=== PATIENT | female | born 1985 | race Caucasian/White ===

== ENCOUNTER 2025-05-14 11:19 | Emergency (ER) | payer BC, SELFPAY ==
--- OUTSIDE RECORDS SUMMARY | 2024-10-27 05:00 | XMS_ITS ---
Author Organization [facility] Advise Only Address [address] [place] [address] Care Team Providers Care Python Django Developer Name Role Phone Daniel Shaikh Primary Care Provider [phone] Santa Preston Unavailable [phone] REASON FOR VISIT f/u labs (IH) Encounters Encounter Location Date Provider Diagnosis [facility] [address] [place] [address] 10/27/2024 Santa Preston Plan Of Treatment No Information Progress Notes * LINETTE EdenDOB:1985 ( 39 yo F)Acc No.[id number]:10/27/2024 Progress Notes Patient: Estefany FARIAS Provider: Maria M Preston :1985 A ge:38 Y S ex:Female Date:10/27/2024 Address:[address] [place] [address], [facility] Pcp:Daniel Shaikh Subjective: * Chief Complaints: * 1 . f/u labs (IH). * Medical History: Objective: * Vitals: Assessment: Plan: * Treatment: * Images: * Electronic signature of Kyra Preston on 05/15/2025 at 06:14 AM EDT Sign off status: Pending * Provider: Maria M Preston Date: 10/27/2024 Generated for Alem russell/Terri/eTransmitting on: 0 05/15/2025 06:14 AM EDT
--- OUTSIDE RECORDS SUMMARY | 2024-11-28 02:19 | XMS_ITS ---
Author Organization [facility] Address [address] [place] [address] Care Team Providers Care Electroformer Name Role Phone Daniel Shaikh Primary Care Provider Saw Brown [phone] Reason For Referral Reason Cervical Carcinoma OON authorization to [facility] (Dr. 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) Referral Organization [facility] Referring Provider First Name Saw Referring Provider Last Name Kevin Referring Provider Speciality Family Med icine Referred Organization [facility] ter - Referrals Referred Address [facility] Referred Provider Specialty Gynecologic Oncology Referral Priority Urgent REASON FOR VISIT Referral Encounters Encounter Location Date Provider Diagnosis [facility] [address] [place] [address] 11/28/2024 Saw Brown Squamous cell carcinoma of cervix C53.9 Assessments Encounter Date Diagnosis (ICD Code) Assessment Notes Treatment Notes Treatment Clinical Notes Section Notes 11/28/2024 Squamous cell carcinoma of cervix (ICD-10 - C53.9) Plan Of Treatment Referrals Referral Date Details 11/28/2024 11/28/2024, Cervical Carcinoma OON authorization to [facility] (Dr. Antonio Castellanos) (Created [facility] Auth 12/03/2023 - [place]Z), [place] [phone] Progress Notes * Jesi PÉREZ:1985 ( 38 yo F)Acc No.[id number]:11/28/2024 Patient: Estefany FARIAS :1985 A ge:38 Y S ex:Female Address:[address] [place] [address], [address] Subjective: * Chief Complaints: * R eferral * Medical History: * Surgical History: * Hospitalization/Major Diagno stic Procedure: * Medications: Objective: * Vitals: * Physical Examination: Assessment: * Assessment: 1. S quamous cell carcinoma of cervix - C53.9 (Primary) Plan: * Treatment: 2. O thers Referral To:Gynecologic Oncology Reason:Cervical Carcinoma OON authorization to [facility] (Dr. Antonio Castellanos) (Created [facility] Auth 12/03/2023 - [place]) * Procedure Codes: * true * Date: Generated for Jacquelyni yvonne/Terri/eTransmitting on: 0 05/15/2025 06:14 AM EDT Consultation Request Notes Referral Date Referring Provider Referred Provider Not es 11/28/2024 Saw Brown , Cervical Carcinoma OON authorization to [facility] (Dr. Antonio Castellanos) (Created [facility] Auth 12/03/2023 - [place])
--- OUTSIDE RECORDS SUMMARY | 2024-12-12 05:53 | XMS_ITS ---
Author Organization DEL [facility] Address [address] [place] [address] Care Team Providers Care Hourly Shift Manager Name Role Phone Daniel Shaikh Primary Care Provider [phone] REASON FOR VISIT annual 2024 Encounters Encounter Location Date Provider Diagnosis [facility] [address] [place] [address] 12/12/2024 Daniel Shaikh Plan Of Treatment No Information Progress Notes * Omega PÉREZOB:1985 ( 39 yo F)Acc No.[id number]:12/12/2024 Patient: Estefany FARIAS :1985 A ge:38 Y S ex:Female Address:[address] [place] [address], [place], [address] * true * Date: Generated for Alem russell/Terri/eTransmitting on: 0 05/15/2025 06:14 AM EDT
[2025-05-14 11:28] VITALS: BP 162/115; PULSE 81; RESP 16; TEMP 36.8; O2SAT 99; BMI 39.9
[2025-05-14 12:04] LABS: Glucose Urine UA Negative (Normal); Nitrate Urine Negative (Negative); Specific Gravity, Urine 1.011 (1.005-1.030)
[2025-05-14 12:09] LABS: Add Urine Microscopic? YES
--- NOTE | 2025-05-14 12:10 | US_ITS ---
WS: [id number] US pelvic complete* [id number] HISTORY: pelvic pain COMPARISON: None available. Uterus: 7.7 cm x 4.7 cm x 3.6 cm. Normal size anteverted uterus. No fibroid or mass. Endometrium: 0.8 cm. Limited but normal as visualized. Difficult evaluation of the pelvic structures due to body habitus. Neither ovary is identified. No adnexal masses. No free fluid in the cul-de-sac. US/US pelvic complete* [id number] IMPRESSION: 1. Very difficult and limited pelvic ultrasound evaluation. 2. Neither ovary identified. 3. Limited evaluation of the uterus and endometrium.
--- NOTE | 2025-05-14 12:12 | ED_ITS ---
HPI - Abdominal Pain 2 General: Chief Complaint: Abdominal Pain Stated Complaint: side/abd pain Time Seen by Provider: 05/14/25 11:48 History of Present Illness: 39-year-old female with history of appen dectomy, who presents to the ED with progressively worsening left lower quadrant pain radiating to left lower back over the past 2 days. States she has taken 800 milligrams of ibuprofen every 46 hours for her pain, which somewhat helps. Denies fevers, chills, nausea, vomiting, diarrhea, dysuria, difficulty urinating, or vaginal discharge. She states she is not on control but has not been sexually active in the last 8 months. No other complaints at this time. Associated Symptoms: Denies chills, diarrhea, dysuria, fever(s), nausea and vomiting Related Data Previous Rx's ?Medication ?Instructions ?Recorded diclofenac sodium 75 mg 75 mg PO Q12H PRN pain #20 t abs 05/14/25 tablet,delayed release Allergies Allergy/AdvReac Type Severity Reaction Status Date / Time No Known Allergies Allergy Verified 05/14/25 11:31 Review of Systems 2 Const: Denies: fever(s) or chills Card: Denies: chest pain Resp: Denies: dyspnea GI: Reports: abdominal pain; Denies: nausea, vomiting or diarrhea : Denies: difficulty voiding or dysuria Physical Exam 2 Const: COMMON NORMALS: no acute distress and patient oriented x3 HENMT: COMMON NORMALS: normocephalic HEAD & SCALP: normocephalic Resp: COMMON NORMALS: normal respiratory effort Cardio: COMMON NORMALS: regular rate and regular rhythm RATE: regular rate RHYTHM: regular rhythm GI: COMMON NORMALS: Normal to inspection, nondistended, normoactive bowel sounds present PALPATION: Yes Tenderness to palpation present (GI) Details: LLQ Neuro: COMMON NORMALS: patient oriented x3 Course 2 Vital Signs: Vital signs: Vital Signs Temperature 98.2 F 05/14/25 11:28 Pulse Rate 60 05/14/25 16:03 Respiratory Rate 18 05/14/25 16:03 Blood Pressure 163/98 05/14/25 16:03 Pulse Oximetry 98 05/14/25 16:03 Oxygen Delivery Me thod Room Air 05/14/25 11:28 MDM - Abdominal Pain Medical Decision Making Symptoms have improved. Ultrasound limited evaluation ovaries not identified. Patient is feeling somewhat better no elevation in white count lipase liver functions normal . Patient is feeling somewhat better will discharge home with diclofenac to use. Follow-up with [facility] or primary care return to [facility] for problems Medical Records I reviewed the patient's medical records. Lab Data I reviewed the patient's lab results. 05/14/25 12:29 05/14/25 12:29 Labs/Radiology: Radiology Impressions Pelvis Ultrasound 05/14/25 12:10 IMPRESSION: 1. Very difficult and limited pelvic ultrasound evaluation. 2. Neither ovary identified. 3. Limited evaluation of the uterus and endometrium. Laboratory Results WBC 10.54 10^3/uL (3.29-11.43) 05/14/25 12: RBC 4.91 10^6/uL (3.85-5.65) 05/14/25 12:29 Hgb 13.50 g/dL (11.27-16.99) 05/14/25 12:29 Hct 41.5 % (36-47) 05/14/25 12:29 MCV 84.5 fl (85-98) L 05/14/25 12:29 MCH 27.5 pg (27-33) 05/14/25 12:29 MCHC 32.5 g/dL (30-55) 05/14/25 12:29 RDW 14.7 % (12.1-15.1) 05/14/25 12:29 Plt Count 242 10^3/cmm (157-399) 05/14/25 12:29 MPV 8.4 fL (7.4-10.4) 05/14/25 12:29 Neut % (Auto) 69.7 % 05/14/25 12:29 Lymph % (Auto) 19.2 % 05/14/25 12:29 Wharton % (Auto) 5.2 % 05/14/25 12: Eos % (Auto) 4.9 % 05/14/25 12: Baso % (Auto) 0.6 % 05/14/25 12:29 Neut # (Auto) 7.35 10^3/uL (1.8-7.7) 05/14/25 12:29 Lymph # (Auto) 2.0 10^3/uL (0.8-4.8) 05/14/25 12:29 Wharton # (Auto) 0.6 10^3/uL (0.2-0.9) 05/14/25 12:29 Eos # (Auto) 0.5 10^3/uL (0.0-0.8) 05/14/25 12: Baso # (Auto) 0.1 10^3/uL (0.0-0.1) 05/14/25 12:29 Nucleated RBC % (auto) 0 % 05/14/25 12: Nucleated RBCs # 0.0 /100WBC 05/14/25 12:29 Sodium 137 mmol/L (136-145) 05/14/25 12:29 Potassium 4.0 mmol/L (3.5-5.1) 05/14/25 12: Chloride 102 mmol/L (98-107) 05/14/25 12: Carbon Dioxide 23 mmol/L (22-29) 05/14/25 12: Anion Gap 16.0 (5-19) 05/14/25 12: BUN 8 mg/dL (6-20) 05/14/25 12:29 Creatinine 0.6 mg/dL (0.5-0.9) 05/14/25 12:29 GFR Calculation 111.9 mL/min (90-130) 05/14/25 12: Glucose 99 mg/dL (65-115) 05/14/25 12: Calculated Osmolality 282 mOsm/kg (285-295) L 05/14/25 12: Calcium 9.2 mg/dL (8.5-10.5) 05/14/25 12: Total Bilirubin 0.4 mg/dL (0.15-1.2) 05/14/25 12:29 AST 9 U/L (0-32) 05/14/25 12:29 ALT 11 U/L (0-33) 05/14/25 12:29 Alkaline Phosphatase 76 U/L (35-105) 05/14/25 12:29 Total Protein 7.5 g/dL (6.6-8.7) 05/14/25 12:29 Albumin 3.8 g/dL (3.5-5.2) 05/14/25 12: Globulin 3.7 g/dL (1.3-4.6) 05/14/25 12: Lipase 32 U/L (13-60) 05/14/25 12:29 Urine Color Yellow (Yellow) 05/14/25 11:53 Urine Appearance Clear (CLEAR) 05/14/25 11:53 Urine pH 8.5 (5-7) A 05/14/25 11:53 Ur Specific Gower 1.011 (1.005-1.030) 05/14/25 11:53 Urine Protein Negative (Negative) 05/14/25 11:53 Urine Glucose (UA) Negative (Normal) 05/14/25 11:53 Urine Ketones Negative (Negative) 05/14/25 11:53 Urine Blood Negative (Negative) 05/14/25 11:53 Urine Nitrate Negative (Negative) 05/14/25 11:53 Urine Bilirubin Negative (Negative) 05/14/25 11:53 Urine Urobilinogen 0.2 mg/dL (Negative) 05/14/25 11:53 Ur Leukocyte Esterase Negative (Negative) 05/14/25 11:53 Urine RBC 0-2 /hpf (0-2) 05/14/25 11:53 Urine WBC 0-5 /hpf (0-5) 05/14/25 11:53 Ur Squamous Epith Cells 0-5 /hpf (0-5) 05/14/25 11:53 Amorphous Sediment Not Reportable 05/14/25 11:53 Urine Bacteria None seen /hpf (NONE) 05/14/25 11:53 Hyaline Casts 0-4 /lpf H 05/14/25 11:53 All radiology interpretation(s) finalized by discharge Discharge Plan Discharge Patient Disposition: Home Clinical Impression: Abdominal pain Condition: Stable Prescriptions: New diclofenac sodium 75 mg tablet,delayed release (DR/EC) 75 mg PO Q12H PRN (Reason: pain) Qty: 20 0RF Discharge Orders: Discharge ED (Routine); Ordered 05/14/25 Ordered By: Elliott Martinez Discharge Diet: Usual diet Discharge Activity: Resume usual activity Patient Instructions: Abdominal Pain (ED), Opioid Safety, Pain Management, Patient Portal & [place] Instructions Activity Restrictions/Additional Instructions: Thank you for choosing [facility] for your healthcare needs today. It is very important that you follow up as instructed or that you return to the Emergency Department should you have concerns or if your condition changes or worsens in any way. You are seen in the emergency room with complaint of left lower quadrant abdominal pain. Your white count was normal urine was normal electrolytes kidney functions and liver functions were all normal as well. There is no sign of bladder infection kidney stone or other infections in the abdomen. Ultrasound of the pelvis did not show any fluid or cyst. Recommend using diclofenac as needed if symptoms worsen or change follow-up with your primary care provider Print Language: Norwegian Coding Level of Care Code ED Food Service Clerk for Jackelin Ervin
[2025-05-14 12:14] VITALS: BP 152/104; O2SAT 97
[2025-05-14 12:35] LABS: Hematocrit 41.5 % (36-47); Hemoglobin 13.50 g/dL (11.27-16.99); Mean Corpuscular HGB Conc 32.5 g/dL (30-55); Mean Corpuscular Hemoglobin 27.5 pg (27-33); Mean Corpuscular Volume 84.5 fl (85-98); Nucleated Red Blood Cells % 0 %; Platelet Count 242 10^3/cmm (157-399); Red Blood Count 4.91 10^6/uL (3.85-5.65); White Blood Count 10.54 10^3/uL (3.29-11.43)
[2025-05-14 12:54] LABS: Alanine Aminotransferase 11 U/L (0-33); Albumin Level 3.8 g/dL (3.5-5.2); Alkaline Phosphatase 76 U/L (35-105); Anion Gap 16.0 (5-19); Aspartate Amino Transferase 9 U/L (0-32); Blood Urea Nitrogen 8 mg/dL (6-20); Calcium 9.2 mg/dL (8.5-10.5); Carbon Dioxide 23 mmol/L (22-29); Chloride 102 mmol/L (98-107); Creatinine Clr Calc Pharmacy 156.0295; Globulin 3.7 g/dL (1.3-4.6); Glucose 99 mg/dL (65-115); Lipase 32 U/L (13-60); Osmolality Calculated 282 mOsm/kg (285-295); Potassium 4.0 mmol/L (3.5-5.1); Sodium 137 mmol/L (136-145); Total Protein 7.5 g/dL (6.6-8.7)
[2025-05-14 15:19] VITALS: BP 135/86
[2025-05-14 16:03] VITALS: BP 163/98; PULSE 60; RESP 18; O2SAT 98
--- OUTSIDE RECORDS SUMMARY | 2025-05-15 05:14 | XMS_ITS | Clinical Summary ---
Author Organization [facility] Address [address] [place] [address] Care Team Providers Care Bar Attendant Name Role Phone Patient, None Per Primary Care Provider Unavaila ble Allergies No known active allergies Medications No known medications Social History Tobacco Use Types Packs/Day Years Used Date Smoking Tobacco: Every Day Cigarettes Smokeless Tobacco: Never Tobacco Cessation:Ready to Q uit: Not Asked; Counseling Given: Not Answered Comments Unknown Sex and Gender Information Value Date Recorded Sex Assigned at Not on file Legal Sex Female 3:07 PM EDT Gender Identity Not on file Sexual Orientation Not on file Last Filed Vital Signs Vital Sign Reading Time Taken Comments Blood Pressure 120/84 05/03/2023 10:03 AM EDT Pulse 80 05/03/2023 10:03 AM EDT Temperature - - Respiratory Rate 16 05/03/2023 10:03 AM EDT Oxygen Saturation 98% 05/03/2023 10:03 AM EDT Inhaled Oxygen Concentration - - Weight 113.4 kg (250 lb) 05/03/2023 10:03 AM EDT Height 165.1 cm (5' 5 ) 05/03/2023 10:03 AM EDT Body Mass Index 41.6 05/03/2023 10:03 AM EDT Plan of Treatment Not on file Insurance [facility] Care Teams Bar Attendant Relationship Specialty Start Date End Date Patient, None Per PCP - General 01/16/22
--- OUTSIDE RECORDS SUMMARY | 2025-05-15 05:14 | XMS_ITS | Clinical Summary ---
Author Organization [facility] Address [address] [place] [address] Care Team Providers Care Registry Rn Name Role Phone Unavailable Primary Care Provider Unavailabl e Social History Tobacco Use Types Packs/Day Years Used Date Smoking Tobacco: Never Assessed Comments Unknown Sex and Gender Information Value Date Recorded Sex Assigned at Not on file Legal Sex Female 11:56 PM EDT Gender Identity Not on file Sexual Orientation Not on file Plan of Treatment Health Maintenance Due Date Last Done Comments Hepatitis C Screening 1985 Annual Physical 06/29/1989 Depression Screening 1998 Varicella Vaccines (1 of 2 - 13+ 2-dose series) 12/28/1999 Pap Smear 12/28/2007 HPV Vaccines (1 - 3-dose SCD M series) 2013 Cervical Cancer Screening 2016 HPV/Cotest 2016 Influenza Vaccine (#1) 2025 DTaP/Tdap/Td Vaccines (4 - T d or Tdap) 05/21/2034 05/21/2024, 01/12/2022, 12/02/1998 Zoster Vaccines (1 of 2) 2036 Respiratory Syncytial Virus (RSV) 60 years and older and/or patients (1 - 1-dose 75+ series) 2061 MMR Vaccines Completed 04/26/1998 Hepatitis B Vaccines Completed 05/17/1999, 12/02/1998, 04/26/1998 Hepatitis A Vaccines Aged Out No long er eligible based on patient's age to complete this topic Meningococcal B Vaccine Aged Out No l onger eligible based on patient's age to complete this topic Meningococcal Vaccine Aged Out No britton des eligible based on patient's age to complete this topic Pneumococcal: Pediatrics (0 to 5 Yrs) and At-Risk Patients (6 to 49 Years) Aged Out No longer eligible b ased on patient's age to complete this topic Respiratory Syncytial Virus (RSV) <20 months Aged Out No longer eligible b ased on patient's age to complete this topic Procedures Procedure Name Priority Date/Time Associated Diagnosis Comments EXTERNAL IMAGING REPORT 03/03/2025 4:21 PM EDT EXTERNAL IMAGING REPORT 03/03/2025 4:20 PM EDT EXTERNAL IMAGING REPORT 03/03/2025 4:20 PM EDT from Last 3 Months Results * External Imaging Report (03/03/2025 4:21 PM EDT) Only the most recent of3 resultswithin the time period is included. Anatomical Region Laterality Modality Radiographic Navya ging us Not In System Provider IMG XR PROCEDURES Final R esult from Last 3 Months Insurance [employer]
--- OUTSIDE RECORDS SUMMARY | 2025-05-15 05:14 | XMS_ITS | Referral Summary ---
Author Organization [facility] Address [address] [place] [address] Care Team Providers Care Preform Machine Operator Name Role Phone Patient, None Per Primary [...] Plan of Treatment Not on file Insurance [facility] H[facility] Care Teams Preform Machine Operator Relationship Specialty Start Date End Date Patient, None Per PCP - General 01/16/22
--- OUTSIDE RECORDS SUMMARY | 2025-05-15 05:14 | XMS_ITS | Patient Health Record ---
Author Organization [facility] Address [address] [place] [address] Care Team Providers Care Laundry Worker Name Role Phone Daniel Shaikh Primary Care Provider Santa Preston Unavailable [phone] Arlene Tao Unavailable [phone] Juanito Brown Unavailable [phone] Allergies No Known Allergies Reason For Referral Reason Morbid obesity Diagnosis 1 Morbid obesity (E66. 01) Referral Organization [facility] Referring Provider First Name Santa Referring Provider Last Name Kary Referred Organization [facility] Referred Provider JUANITO CASTILLO Referred Address [address] [facility] [address],[place], [place],[address],[place] Referred Provider Specialty General Surg umair Referral Priority Routine Reason right sided back alexa n with radiculopathy Diagnosis 1 Lumbar back pain wit h radiculopathy affecting right lower extremity (M54.16) Referral Organization [facility] Referring Provider First Name Santa Referring Provider Last Name Kary Referred Organization [facility] Referred Address [address] [facility],[address],[place], [place],[address],[place] Referred Provider Specialty Physical The rapist Referral Priority Routine Reason Dr. 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 Referred Provider Specialty Gynecologic Oncology Referral Priority Urgent Medications Medication SIG (Take, Route, Frequency, Duration) Notes Start Date End Date Status Suboxone 8-2 MG 1 film under the tongue and allow to dissolve Sublingual Once a day Active Ibuprofen 800 MG 1 tablet with food o r milk as needed Orally every 8 hrs for 30 days 08/11/2024 Active Fiber 500 MG as directed Orally Active Xarelto 15 MG 1 tablet with food Orally twice a day Active PriLOSEC OTC 20 MG 1 tablet 1/2 to 1 hour before morning meal Orally Once a day Active buPROPion HCl ER (XL) 300 MG 1 tablet in the morning Orally Once a day for 90 days 150 mg for 10 days, then increase to 300 mg daily 06/23/2024 Not-Taking Wegovy 0.25mg 0.25 mg / 0.5 mL 0.5 mL Subcutaneously Weekly for 28 days please generate prior auth Not-Taking buPROPion HCl ER (XL) 150 MG 1 tablet in the morning Orally Once a day for 90 days 08/11/2024 Not-Taking buPROPion HCl ER (XL) 150 MG 1 tablet in the morning Orally Once a day for 10 days 150 mg for 10 days, then increase to 300 mg daily Not-Taking tiZANidine HCl 2 MG 1 tablet at bedtime as needed Orally Once a day for 10 days 08/11/2024 Not-Taking Social History Tobacco Use: Social History Observation Description Date Details (start date - stop date) Current Smoker NA - NA Tobacco Use/Smoking Question Answer Notes Are you a: current smoker half pack for 10 years AUDIT-C (Standard) Question Answer Notes Did you have a drink containing alcohol in the p ast year? 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 She doesn't really feel like she worries. Start wellbutrin 150 mg daily (06/23/24) Increase Wellbutrin to 300 mg daily. Patient feeling well. PHQ9 at next OV. (08/11/24) PHQ-9: 2. Currently unmedicated. Will re-start bupropion 150 mg daily for smoking cessation Problem 23869540 Current smoker (F17.200) Active confirmed (05/19/24) Start wellbutrin 150 mg daily (06/23/24) Increase Wellbutrin to 300 mg daily. Patient feeling well. PHQ9 at next OV. (08/11/24) Patient was intolerant to Wellbutrin 300 mg daily. She did not have problems with bupropion 150 mg daily - re-start wellbutrin 150 mg daily Problem 572476904 PCOS (polycystic ovarian syndrome) (E28.2) Active confirmed Vital Signs Heart Rate 79 /min 09/19/2024 Roomed by Rosalio Madison MA Oximetry 99 % 09/19/2024 Roomed by Rosalio Madison MA Blood pressure diastolic 70 mm Hg 09/19/2024 [facility] by Kierra Madison MA Height 65 in 09/19/2024 Roomed by Rosalio Madison MA Blood pressure systolic 125 mm Hg 09/19/2024 Room ed by Kierra Madison MA Weight 259 lbs 09/19/2024 Roomed by Rosalio Madison MA BMI 43.1 kg/m2 09/19/2024 Roomed by Rosalio Madison MA Encounters Encounter Location Date Provider Diagnosis [facility] [address] [place] [address] 05/19/2024 Santa Preston Annual physical exam Z00.00 ; PCOS (polycystic ovarian syndrome) E28.2 ; Depression screening Z13.31 ; Alcohol screening Z13.39 ; Morbid obesity E66.01 ; Screening for hyperlipidemia Z13.220 ; Elevated fasting blood sugar R73.01 ; Current mild episode of major depressive disorder without prior episode F32.0 and Current smoker F17.200 [facility] [address] [facility] [place] [address] 05/28/2024 Santa Lushine Morbid obesity E66.0 1 ; Screening for hyperlipidemia Z13.220 ; Elevated fasting blood sugar R73.01 and PCOS (polycystic ovarian syndrome) E28.[address] [facility] [address] [place] [address] 06/23/2024 Santa Lustar PCOS (polycystic ovarian syndrome) E28.2 ; Morbid obesity E66.01 ; Elevated fasting blood sugar R73.01 ; Current mild episode of major depressive disorder without prior episode F32.0 ; Current smoker F17.200 ; Mixed hyperlipidemia E78.2 and Microcytosis R71.[address] [facility] [address] [place] [address] 08/11/2024 Santa Kary PCOS (polycystic ovarian syndrome) E28.2 ; Lumbar back pain with radiculopathy affecting right lower extremity M54.16 ; Morbid obesity E66.01 ; Elevated fasting blood sugar R73.01 ; Current mild episode of major depressive disorder without prior episode F32.0 ; Current smoker F17.200 ; Mixed hyperlipidemia E78.2 ; Microcytosis R71.8 and Prediabetes R73.[address] [facility] [address] [place] [address] 09/19/2024 Arlene Tao Malignant neoplasm o f urethra C68.[address] [facility] [address] [place] [address] 05/20/2024 Santaelias Preston Current mild episode of major depressive disorder without prior episode F32.0 [facility] [address] [place] [address] 09/18/2024 Santa Preston [facility] [address] [place] [address] 11/28/2024 Juanito Brown Squamous cell carcinoma of cervix C53.9 [facility] [address] [place] [address] 12/12/2024 [facility] Assessments Encounter Date Diagnosis (ICD Code) Assessment Notes Treatment Notes Treatment Clinical Notes Section Notes 05/19/2024 Annual physical exam (ICD-10 - Z00.00) Verified medications, labs evaluated, uptodate screening, continue daily exercise, advise continue working to maintain a healthy diet and weight, avoid smoking and excess intake of alcohol, f/u yearly annual exam 05/19/2024 PCOS (polycystic ovarian syndrome) (ICD-10 - E28.2) 05/20/2024 Current mild episode of major depressive disorder without prior episode (ICD-10 - F32.0) (05/19/24) PHQ-9: 8. She doesn't really feel like she worries. Start wellbutrin 150 mg daily 05/28/2024 Morbid obesity (ICD-10 - E66.01) (02/26/24) Recommend low fat diet and replacement of saturated and trans fats with unsaturated fats. Foods rich with saturated fats are dairy fats, red meats, and pork. Avoid processed foods, as they contain trans fats. Examples of good sources of protein are beans, fish, and poultry. Examples of foods with healthy fats are olive oil, fish, avocado, nuts. Eat plenty of green leafy vegetables. Avoid processed carbohydrates and simple sugars. Healthy sources of carbohydrates are vegetables, sweet potatoes, quinoa, oatmeal, brown rice, fruits, and wheat pasta. Regular cardiovascular exercise (at least 30 minutes 5 days per week). 08/11/2024 PCOS (polycystic ovarian syndrome) (ICD-10 - E28.2) 08/11/2024 Lumbar back pain with radiculopathy affecting right lower extremity (ICD-10 - M54.16) (08/11/24) Referral to PT. Ibuprofen 800 mg three times daily, tizanidine 2 mg at HS as needed. 06/23/2024 PCOS (polycystic ovarian syndrome) (ICD-10 - E28.2) 06/23/2024 Morbid obesity (ICD-10 - E66.01) 09/19/2024 Malignant neoplasm of urethra (ICD-10 - C68.0) 11/28/2024 Squamous cell carcinoma of cervix (ICD-10 - C53.9) 06/23/2024 Elevated fasting blood sugar (ICD-10 - R73.01) (05/28/24) A1C 6.2, glucose 93, Insulin 9.5 Avoid simple sugars and processed carbohydrates. Eat plenty of green leafy vegetables. Avoid processed foods, processed carbohydrates, simple sugars, and sugary drinks. Healthier sources of carbohydrates are vegetables, fruits in moderation, quinoa, old fashioned oats, brown rice, and wheat pasta in moderation. I recommend an active lifestyle and regular cardiovascular exercise (at least 30 minutes 5 days per week). 08/11/2024 Morbid obesity (ICD-10 - E66.01) If you're overweight, your doctor may recommend that you make changes in your eating and exercise habits. Being overweight can lead to serious health problems, such as high blood pressure, heart disease, type 2 diabetes, and arthritis, or it can make these problems worse. Eating a healthy diet and being more active can help you reach and stay at a healthy weight. Start by making small changes in your eating and exercise habits. Follow-up care is a gan part of your treatment and safety. Be sure to make and go to all appointments and call your doctor if you are having problems. It's also a good idea to know your test results and keep a list of the medicines you take. 05/28/2024 Screening for hyperlipidemia (ICD-10 - Z13.220) 05/19/2024 Depression screening (ICD-10 - Z13.31) 05/19/2024 Alcohol screening (ICD-10 - Z13.39) 05/28/2024 Elevated fasting blood sugar (ICD-10 - R73.01) 08/11/2024 Elevated fasting blood sugar (ICD-10 - R73.01) (05/28/24) A1C 6.2, glucose 93, Insulin 9.5 Avoid simple sugars and processed carbohydrates. Eat plenty of green leafy vegetables. Avoid processed foods, processed carbohydrates, simple sugars, and sugary drinks. Healthier sources of carbohydrates are vegetables, fruits in moderation, quinoa, old fashioned oats, brown rice, and wheat pasta in moderation. I recommend an active lifestyle and regular cardiovascular exercise (at least 30 minutes 5 days per week). 06/23/2024 Current mild episode of major depressive disorder without prior episode (ICD-10 - F32.0) (05/19/24) PHQ-9: 8. She doesn't really feel like she worries. Start wellbutrin 150 mg daily (06/23/24) Increase Wellbutrin to 300 mg daily. Patient feeling well. PHQ9 at next OV. No plans to injure self or others. Notify office for worsening symptoms. 06/23/2024 Current smoker (ICD-10 - F17.200) (05/19/24) Start wellbutrin 150 mg daily (06/23/24) Increase Wellbutrin to 300 mg daily. Patient feeling well. PHQ9 at next OV. Cessation advised 08/11/2024 Current mild episode of major depressive disorder without prior episode (ICD-10 - F32.0) (05/19/24) PHQ-9: 8. She doesn't really feel like she worries. Start wellbutrin 150 mg daily (06/23/24) Increase Wellbutrin to 300 mg daily. Patient feeling well. PHQ9 at next OV. (08/11/24) PHQ-9: 2. Currently unmedicated. Will re-start bupropion 150 mg daily for smoking cessation No plans to injure self or others. Notify office for worsening symptoms. 05/28/2024 PCOS (polycystic ovarian syndrome) (ICD-10 - E28.2) 05/19/2024 Morbid obesity (ICD-10 - E66.01) (02/26/24) Maintain blood pressure - under-systolic of 130 and diastolic of 80. Continue a low salt diet, 30 minutes exercise daily, maintain a healthy weight. Keep a blood pressure log and always bring in to follow up appointments, Don't smoke and avoid alcoholic drinks. Eat plenty of green leafy vegetables. Avoid processed foods, processed carbohydrates, simple sugars, and sugary drinks. Healthier sources of carbohydrates are vegetables, fruits in moderation, quinoa, old fashioned oats, brown rice instead of white rice, and wheat pasta instead of white pasta. I recommend an active lifestyle and regular cardiovascular exercise (at least 30 minutes 5 days per week). 05/19/2024 Screening for hyperlipidemia (ICD-10 - Z13.220) 08/11/2024 Current smoker (ICD-10 - F17.200) (05/19/24) Start wellbutrin 150 mg daily (06/23/24) Increase Wellbutrin to 300 mg daily. Patient feeling well. PHQ9 at next OV. (08/11/24) Patient was intolerant to Wellbutrin 300 mg daily. She did not have problems with bupropion 150 mg daily - re-start wellbutrin 150 mg daily Cessation advised 06/23/2024 Mixed hyperlipidemia (ICD-10 - E78.2) (05/28/24) TC 228, HDL 43, LDL 162, TG 114 Healthy sources of fat include avocado, nuts, fish, and poultry in moderation. Eat plenty of green leafy vegetables. Avoid processed foods, processed carbohydrates, simple sugars, and sugary drinks. Healthier sources of carbohydrates are vegetables, fruits in moderation, quinoa, old fashioned oats, brown rice, and wheat pasta. I recommend an active lifestyle and regular cardiovascular exercise (at least 30 minutes 5 days per week). I recommend omega-3 fish oil supplement daily - [employer]. 06/23/2024 Microcytosis (ICD-10 - R71.8) (05/28/24) H/H 12.7/40.6, MCV 78.5 I recommend [employer] Womens 1x/day vitamin 08/11/2024 Mixed hyperlipidemia (ICD-10 - E78.2) (05/28/24) TC 228, HDL 43, LDL 162, TG 114 Healthy sources of fat include avocado, nuts, fish, and poultry in moderation. Eat plenty of green leafy vegetables. Avoid processed foods, processed carbohydrates, simple sugars, and sugary drinks. Healthier sources of carbohydrates are vegetables, fruits in moderation, quinoa, old fashioned oats, brown rice, and wheat pasta. I recommend an active lifestyle and regular cardiovascular exercise (at least 30 minutes 5 days per week). I recommend omega-3 fish oil supplement daily - [employer]. 05/19/2024 Elevated fasting blood sugar (ICD-10 - R73.01) 05/19/2024 Current mild episode of major depressive disorder without prior episode (ICD-10 - F32.0) (05/19/24) PHQ-9: 8. She doesn't really feel like she worries. Start wellbutrin 150 mg daily No plans to injure self or others. Notify office for worsening symptoms. 08/11/2024 Microcytosis (ICD-10 - R71.8) (05/28/24) H/H 12.7/40.6, MCV 78.5 I recommend [employer] Womens 1x/day vitamin 08/11/2024 Prediabetes (ICD-10 - R73.03) (05/28/24) A1C 6.2, glucose 93, Insulin 9.5 Avoid simple sugars and processed carbohydrates. Eat plenty of green leafy vegetables. Avoid processed foods, processed carbohydrates, simple sugars, and sugary drinks. Healthier sources of carbohydrates are vegetables, fruits, quinoa, old fashioned oats, brown rice, and wheat pasta in moderation. I recommend an active lifestyle and regular cardiovascular exercise (at least 30 minutes 5 days per week). 05/19/2024 Current smoker (ICD-10 - F17.200) (05/19/24) Start wellbutrin 150 mg daily Cessation advised Plan Of Treatment Pending Test Test Name Order Date CBC With Differential/Platelet CBC With Differential/Platelet Iron and TIBC 08/11/2024 Iron and TIBC 06/23/2024 Hemoglobin A1c - 317220 06/23/2024 Hemoglobin A1c - [id number] 08/11/2024 Ferritin, Serum 08/11/2024 Ferritin, Serum 06/23/2024 Lipid Panel - [id number] 06/23/2024 Lipid Panel - [id number] 08/11/2024 TSH reflex to T4F 08/11/2024 TSH reflex to T4F 06/23/2024 Comprehensive Metabolic Panel 02/26/2024 Urinalysis, Complete 06/23/2024 Urinalysis, Complete 08/11/2024 [id number] 08/11/2024 CMP14+eGFR 06/23/2024 Insurance Providers Payer Name Payer Address Payer Phone Subscriber Number Group Number Insured Name Patient Relationship to Insured Coverage Start Date Coverage End Date [facility] [address] [address] [place] [address] [id number] Estefany Pérez Self - patient is the insured Medical (General) History Medical History History ICD Code GYNECOLOGICAL HISTORY:[id number] occurre d at age 14 chickenpox Surgical History Surgery Date(Month/Year) Appendectomy: 1999; uncomplicated;
--- OUTSIDE RECORDS SUMMARY | 2025-05-15 05:15 | XMS_ITS | Clinical Summary ---
Author Organization [facility] Address [facility] [place] [address] Care Team Providers Care Well Logging Operator Mud Analysis Name Role Phone Unavailable Primary Care Provider Unavailabl e Medications busPIRone (Buspar) 10 MG tablet take one tab daily 07/22/2018 Active ibuprofen 600 MG tablet Take one tab as needed. 07/22/2018 Active Social History Tobacco Use Types Packs/Day Years Used Date Smoking Tobacco: Never Assessed Comments Unknown Sex and Gender Information Value Date Recorded Sex Assigned at Female 02/20/2024 2:54 PM EDT Legal Sex Female 2:54 PM EDT Gender Identity Female 09/26/2024 11:36 AM EST Sexual Orientation Not on file Plan of Treatment Health Maintenance Due Date Last Done Comments HIV Screening 1986 Lipid Panel 1986 Varicella Vaccines (1 of 2 - 13+ 2-dose series) 12/28/1999 HPV Vaccines (1 - 3-dose series) 2001 Hepatitis C Screening 2004 Pap Smear 12/28/2007 Cervical Cancer Screening 2016 HPV/Cotest 2016 COVID-19 Vaccine ( - 2023-2 5 season) 2024 Influenza Vaccine (Season Ended) 2025 DTaP/Tdap/Td Vaccines (4 - T d or Tdap) 05/21/2034 05/21/2024, 01/12/2022, 12/02/1998 Hepatitis B Vaccines Completed 05/17/1999, 12/02/1998, 04/26/1998 HIB Vaccines Aged Out No longer eligi ble based on patient's age to complete this topic Hepatitis A Vaccines Aged Out No long er eligible based on patient's age to complete this topic IPV Vaccines Aged Out No longer eligi ble based on patient's age to complete this topic Meningococcal B Vaccine Aged Out No l onger eligible based on patient's age to complete this topic Meningococcal Vaccine Aged Out No britton des eligible based on patient's age to complete this topic Pneumococcal Vaccine: Pediatrics (0 to 5 Years) and At-Risk Patients (6 to 64 Years) Aged Out No longer eligible b ased on patient's age to complete this topic Rotavirus Vaccines Aged Out No longer eligible based on patient's age to complete this topic Insurance [facility]
== END 2025-05-14 16:04 | disposition home or self-care (01) ==
PROVIDERS: Emergency Provider Family Medicine
DX: R10.9 Unspecified abdominal pain (principal)
CPT/HCPCS: 36415; 76856; 80053; 81001; 83690; 85025; 99284; J9999